=== PATIENT | male | born 1975 | race Caucasian/White ===

== ENCOUNTER 2018-09-29 06:12 | Emergency (ER) | payer BC ==
[~2018-09-29] VITALS: Ht 180.3 cm; Wt 185.9 kg
[2018-09-29 06:26] VITALS: BP 177/93
== END 2018-09-29 11:45 | disposition left against medical advice (07) ==
LOC: ER 06:12
DX: R10.32 Left lower quadrant pain (principal); R11.2 Nausea with vomiting, unspecified; Z53.21 Procedure and treatment not carried out due to patient leaving prior to being seen by health care provider
CPT/HCPCS: Z7610 ×2